=== PATIENT | female | born 1945 | race Caucasian/White ===

== ENCOUNTER 2017-05-05 16:06 | Inpatient (IN) | payer MEDICAID ==
[~2017-05-05] VITALS: Ht 152.4 cm; Wt 60.4 kg
[~2017-05-05 16:06] MED LIST: ALDACTONE25 MG PO; ASPIR 8181 MG PO; CIPROFLOXACIN250 M2 PO; COR3 PO; ENALAPRIL MALEAT5 MG PO; FUROSEMIDE20 MG PO; HYD1C TOP; METFORMIN HCL1000 MG PO; SIMVASTATIN20 M1 PO
--- NOTE | 2017-05-05 16:25 | NUR ---
EMT AT BEDSIDE FOR EKG
--- NOTE | 2017-05-05 16:29 | NUR ---
PT C/O OF DIZZINESS X 5 DAYS. PT STATES THAT SHE FEELS UNSTEADY ON HER FEET. PT REPORTS THAT HER APPITITE HAS DECREASED ALSO 5 DAYS AGO. PT REPORTS HAVING DIARRHEA SINCE X 2 DAYS. PT STATES THAT THE DIZZINESS GOES AWAY WHEN SHE LAYS DOWN. PATIENT DENIES ANY N/V. RESPIRATIONS EVEN AND UNLABORED. NAD NOTED.
--- NOTE | 2017-05-05 16:52 | NUR ---
DR CRISTINA AT BEDSIDE FOR MSE
--- NOTE | 2017-05-05 16:59 | NUR ---
EMT AT BEDSIDE FOR ORTHOSTATICS
--- NOTE | 2017-05-05 17:01 | NUR ---
LAB AT [facility] FOR BLOOD DRAW
[2017-05-05 17:12] LABS: BASOPHIL % 0.4 % (0-2); PLATELET COUNT 207 x10^3mcL (130-400); RED CELL DISTRIBUTION WIDTH 12.9 % (11.5-14.5)
--- NOTE | 2017-05-05 17:19 | NUR ---
RT AT BEDSIDE FOR ABG
--- NOTE | 2017-05-05 17:26 | NUR ---
PT GOING BY [facility] FOR CXR.
[2017-05-05 17:37] LABS: ALBUMIN 4.1 g/dL (3.4-5.0); ALKALINE PHOSPHATASE 157 U/L (46-116); ALT/SGPT 17 U/L (14-59); AMYLASE 36 U/L (25-115); AST/SGOT 14 U/L (15-37); BILIRUBIN TOTAL 0.5 mg/dL (0.20-1.00); CALCIUM 9.4 mg/dL (8.5-10.1); CARBON DIOXIDE 31.3 mmol/L (21-32); CHLORIDE SERUM 89 mmol/L (98-107); CHOLESTEROL 189 mg/dL (<200); CREATININE SERUM 2.2 mg/dL (0.6-1.0); HDL CHOLESTEROL 53 mg/dL (40-60); LIPASE 320 IU/L (73-393); MAGNESIUM 2.5 mg/dL (1.8-2.4); SODIUM SERUM 127 mmol/L (136-145); T4(THYROXINE) 8.4 ug/dL (4.7-13.3)
[2017-05-05 17:40] LABS: TOTAL PROTEIN, SERUM 8.4 g/dL (6.4-8.2)
[2017-05-05 17:43] LABS: POTASSIUM SERUM 5.7 mmol/L (3.5-5.1)
[2017-05-05 18:05] LABS: GLUCOSE SERUM 888 mg/dL (74-106)
--- NOTE | 2017-05-05 18:14 | NUR ---
PT RESTING COMFORTABLY. NAD NOTED. RESPIRAATIONS EVEN AND UNLABORED. FAMILY AT BEDSIDE.
[2017-05-05 18:53] LABS: UA SPECIFIC GRAVITY <=1.005 (1.005-1.035); microscopic required? YES
[2017-05-05 18:54] LABS: urine erythrocyte NEGATIVE (NEGATIVE)
--- NOTE | 2017-05-05 19:27 | NUR ---
REPORT RECEIVED FOR THIS PT FROM THAI GUY.
--- NOTE | 2017-05-05 19:44 | NUR ---
PT MEDICATED PER MD ORDERS.
--- NOTE | 2017-05-05 22:25 | NUR ---
PT TO AND FROM RR
--- NOTE | 2017-05-05 22:44 | NUR ---
PT UP TO RR WITH FAMILY ASSISTANCE, RETURNED TO BED SAFELY.
[2017-05-05 22:48] LABS: CALCIUM 8.2 mg/dL (8.5-10.1); CARBON DIOXIDE 28.3 mmol/L (21-32); CHLORIDE SERUM 111 mmol/L (98-107); CREATININE SERUM 1.4 mg/dL (0.6-1.0); GLUCOSE SERUM 122 mg/dL (74-106); POTASSIUM SERUM 4.5 mmol/L (3.5-5.1); SODIUM SERUM 146 mmol/L (136-145)
--- NOTE | 2017-05-05 23:39 | NUR ---
PT USED BEDSIDE CAMODE WITH NO INCIDENT. PASSED LIQUID STOOL, RETURNED TO BED SAFELY. FAMILY REMAINS AT BEDSIDE
[2017-05-06] MEDS ORDERED: CARVEDILOL6.25 M1 PO (01:05)
[2017-05-06] MEDS ORDERED: FUROSEMIDE40 MG PO (01:05)
[2017-05-06] MEDS ORDERED: ENALAPRIL MALEA10 MG PO (01:07)
--- NOTE | 2017-05-06 01:13 | NUR ---
REPORT CALLED TO THAI ADAMS ON MST FOR THIS PT
--- NOTE | 2017-05-06 01:34 | NUR ---
PATIENT RECEIVED FROM ER VIA [facility] DUE TO COMPLAIN OF GENERALIZED WEAKNESS, FATIGUE, ANOREXIA AND DIZZINESS X5 DAYS. AWAKE, ALERT, ORIENTED X4. SAMI SPEAKING. RESPIRATION EVEN AND UNLABORED, ON ROOM AIR. SALINE LOCK TO RIGHT ANTECUBITAL AREA AND RIGHT FOREARM. VOIDING FREELY WITHOUT DIFFICULTY. MILD GENERALIZED WEAKNESS NOTED. SKIN DRY AND INTACT. DAUGHTER AT THE BEDSIDE. ON TELE #11. WILL CONTINUE TO MONITOR PATIENT.
[2017-05-06 02:07] VITALS: BP 128/38; BP 139/76
[2017-05-06 03:04] VITALS: BP 128/38
[2017-05-06 05:39] VITALS: BP 144/64
[2017-05-06 06:10] LABS: BASOPHIL % 0.4 % (0-2); PLATELET COUNT 158 x10^3mcL (130-400); RED CELL DISTRIBUTION WIDTH 12.9 % (11.5-14.5)
[2017-05-06 06:17] LABS: CALCIUM 8.4 mg/dL (8.5-10.1); CARBON DIOXIDE 25.8 mmol/L (21-32); CHLORIDE SERUM 110 mmol/L (98-107); CREATININE SERUM 1.4 mg/dL (0.6-1.0); GLUCOSE SERUM 256 mg/dL (74-106); MAGNESIUM 1.9 mg/dL (1.8-2.4); POTASSIUM SERUM 4.3 mmol/L (3.5-5.1); SODIUM SERUM 144 mmol/L (136-145)
--- NOTE | 2017-05-06 06:18 | NUR ---
PATIENT RESTING IN BED. RESPIRATION EVEN AND UNLABORED, ON ROOM AIR. ONGOING 0.9% NS AT 100 CC/HR INFUSING WELL AT THE LEFT FOREARM. DENIES PAIN AT THIS TIME. ASSISTED WITH NEEDS. SAFETY OBSERVED. PLACED CALL LIGHT WITHIN REACH AT ALL TIMES.
[2017-05-06 08:52] VITALS: BP 137/64
--- NOTE | 2017-05-06 10:01 | NUR ---
AAO TIMES 4. PLEASANT, COOPERATIVE. TELE # 11 SR WITH BBB. LUNGS CTA. NO SOB. O2 SAT ON RA 96%. BS'S ACTIVE TIMES 4. HURT STRONG. PERIPHERAL PULSES PALPABLE. NO EDEMA. HURT STRONG. C/O HUNGER, IM PAGING DR THOMAS FOR A DIET.
[2017-05-06 12:05] VITALS: BP 132/57
[2017-05-06] MEDS ORDERED: MAC100 PO (14:35)
[2017-05-06] MEDS ORDERED: V10 PO (14:36)
[2017-05-06] MEDS ORDERED: LIPI20 PO (14:36)
[2017-05-06] MEDS ORDERED: COR6 PO (14:36)
[2017-05-06] MEDS ORDERED: BG FS (14:37)
[2017-05-06] MEDS ORDERED: METFORMIN HCL1000 MG PO (14:39)
[2017-05-06] MEDS ORDERED: ACCU-CHEK AVIV1 EAC1 MC (14:43)
[2017-05-06 14:51] VITALS: BP 132/57
[2017-05-06] MEDS ORDERED: FLA500 PO (15:59)
--- NOTE | 2017-05-06 16:30 | NUR ---
ERON IS DOING TEACHING RE HOW TO USE THE GLUCOMETER WITH THE FAMILY.
[2017-05-06] MEDS ORDERED: ACCU-CHEK1 EACH MC (16:32)
--- NOTE | 2017-05-06 17:46 | NUR ---
DC'D SL ANGIO INTACT. GAVE PT DISCHARGE INSTRUCTIONS AND PRESCRIPTION SENT TO PHARMACY SUCCESSFULLY. PT'S DTR PRESENT, SUPPORTIVE. THEY WILL GO AFTER SHE EATS HER DINNER .
== END 2017-05-06 18:01 | disposition home or self-care (01) | DRG 420 ==
LOC: ED 16:06 → DU 18:44
PROVIDERS: Emergency Medicine; ADMIT Family Medicine
DX: E11.00 Type 2 diabetes mellitus with hyperosmolarity without nonketotic hyperglycemic-hyperosmolar coma (NKHHC) (principal); N17.0 Acute kidney failure with tubular necrosis; E87.5 Hyperkalemia; E83.41 Hypermagnesemia; N39.0 Urinary tract infection, site not specified; E87.1 Hypo-osmolality and hyponatremia; I10 Essential (primary) hypertension; D64.9 Anemia, unspecified; I25.2 Old myocardial infarction; Z79.82 Long term (current) use of aspirin; Z68.26 Body mass index [BMI] 26.0-26.9, adult
CPT/HCPCS: 36600; 82962; 83880; J0696; J1815; J7030; Q0092

== ENCOUNTER 2017-05-14 21:56 | Inpatient (IN) | payer MEDICAID ==
[~2017-05-14] VITALS: Ht 152.4 cm; Wt 70.4 kg
[~2017-05-14 21:56] MED LIST changes: +ACCU-CHEK AVIV1 EAC1 MC; +ACCU-CHEK1 EACH MC; +BG FS; +CARVEDILOL6.25 M1 PO; +COR6 PO; +ENALAPRIL MALEA10 MG PO; +FLA500 PO; +FUROSEMIDE40 MG PO; +LIPI20 PO; +MAC100 PO; +V10 PO
[2017-05-14 23:00] LABS: BASOPHIL % 0.1 % (0-2); PLATELET COUNT 297 x10^3mcL (130-400); RED CELL DISTRIBUTION WIDTH 13.4 % (11.5-14.5)
[2017-05-14 23:14] LABS: ALBUMIN 3.6 g/dL (3.4-5.0); ALKALINE PHOSPHATASE 104 U/L (46-116); ALT/SGPT 25 U/L (14-59); AST/SGOT 48 U/L (15-37); BILIRUBIN TOTAL 0.5 mg/dL (0.20-1.00); CALCIUM 8.7 mg/dL (8.5-10.1); CARBON DIOXIDE 12.7 mmol/L (21-32); CHLORIDE SERUM 95 mmol/L (98-107); GLUCOSE SERUM 89 mg/dL (74-106); POTASSIUM SERUM 4.8 mmol/L (3.5-5.1); SODIUM SERUM 141 mmol/L (136-145); TOTAL PROTEIN, SERUM 7.8 g/dL (6.4-8.2)
[2017-05-14 23:19] LABS: CREATININE SERUM 9.6 mg/dL (0.6-1.0)
[2017-05-14 23:38] LABS: CK-MB 3.2 ng/mL (0-3.6)
[2017-05-15] VITALS (22 sets, daily range): BP systolic 52–177; BP diastolic 26–64
[2017-05-15 03:39] LABS: MAGNESIUM 2.3 mg/dL (1.8-2.4)
[2017-05-15 03:45] LABS: CHOLESTEROL/HDL RATIO 2.5
[2017-05-15 03:52] LABS: PHOSPHOROUS 9.6 mg/dL (2.5-4.9)
[2017-05-15 06:00] LABS: CALCIUM 7.7 mg/dL (8.5-10.1); CARBON DIOXIDE 10.7 mmol/L (21-32); CHLORIDE SERUM 100 mmol/L (98-107); GLUCOSE SERUM 77 mg/dL (74-106); MAGNESIUM 2.3 mg/dL (1.8-2.4); POTASSIUM SERUM 5.1 mmol/L (3.5-5.1); SODIUM SERUM 148 mmol/L (136-145)
[2017-05-15 06:12] LABS: PHOSPHOROUS 10.4 mg/dL (2.5-4.9)
[2017-05-15 10:00] LABS: CALCIUM 7.4 mg/dL (8.5-10.1); CHLORIDE SERUM 99 mmol/L (98-107); GLUCOSE SERUM 137 mg/dL (74-106); MAGNESIUM 3.7 mg/dL (1.8-2.4); POTASSIUM SERUM 4.4 mmol/L (3.5-5.1); SODIUM SERUM 149 mmol/L (136-145)
[2017-05-15 10:10] LABS: microscopic required? YES; urine erythrocyte 3+ (NEGATIVE)
[2017-05-15 10:27] LABS: CARBON DIOXIDE 8.7 mmol/L (21-32)
[2017-05-15 10:28] LABS: CREATININE SERUM 8.7 mg/dL (0.6-1.0)
[2017-05-15 10:29] LABS: PHOSPHOROUS 12.5 mg/dL (2.5-4.9)
[2017-05-15 12:32] LABS: CALCIUM 8.5 mg/dL (8.5-10.1); CARBON DIOXIDE 11.2 mmol/L (21-32); CHLORIDE SERUM 98 mmol/L (98-107); GLUCOSE SERUM 260 mg/dL (74-106); MAGNESIUM 3.2 mg/dL (1.8-2.4); POTASSIUM SERUM 4.2 mmol/L (3.5-5.1); SODIUM SERUM 153 mmol/L (136-145)
[2017-05-15 13:15] LABS: CREATININE SERUM 8.4 mg/dL (0.6-1.0); PHOSPHOROUS 12.1 mg/dL (2.5-4.9)
[2017-05-15 18:23] LABS: CALCIUM 7.7 mg/dL (8.5-10.1); CARBON DIOXIDE 14.2 mmol/L (21-32); CHLORIDE SERUM 99 mmol/L (98-107); CREATININE SERUM 3.4 mg/dL (0.6-1.0); GLUCOSE SERUM 259 mg/dL (74-106); SODIUM SERUM 142 mmol/L (136-145)
[2017-05-15 18:27] LABS: POTASSIUM SERUM 2.7 mmol/L (3.5-5.1)
[2017-05-15 18:28] LABS: MAGNESIUM 1.7 mg/dL (1.8-2.4); PHOSPHOROUS 3.7 mg/dL (2.5-4.9)
[2017-05-16] VITALS (18 sets, daily range): BP systolic 115–183; BP diastolic 35–59
[2017-05-16 03:07] LABS: CALCIUM 7.1 mg/dL (8.5-10.1); CHLORIDE SERUM 96 mmol/L (98-107); GLUCOSE SERUM 337 mg/dL (74-106); MAGNESIUM 2.2 mg/dL (1.8-2.4); PHOSPHOROUS 2.7 mg/dL (2.5-4.9); SODIUM SERUM 136 mmol/L (136-145)
[2017-05-16 03:10] LABS: CREATININE SERUM 4.1 mg/dL (0.6-1.0)
[2017-05-16 08:48] LABS: PLATELET COUNT 186 x10^3mcL (130-400); RED CELL DISTRIBUTION WIDTH 13.4 % (11.5-14.5)
[2017-05-16 09:35] LABS: BAND NEUTROPHIL 17 % (0-10); BASOPHIL 0 % (0-2); MONOCYTE 6 % (0-7); SEGMENTED NEUTROPHILS 66 % (37-75); rbc morphology (normal/abnorm) NORMAL (NORMAL)
[2017-05-16 09:36] LABS: PLATELET MORPHOLOGY PLATELETS NORMAL
[2017-05-16 10:28] LABS: CALCIUM 7.6 mg/dL (8.5-10.1); CHLORIDE SERUM 98 mmol/L (98-107); GLUCOSE SERUM 115 mg/dL (74-106); PHOSPHOROUS 2.3 mg/dL (2.5-4.9); POTASSIUM SERUM 3.5 mmol/L (3.5-5.1); SODIUM SERUM 141 mmol/L (136-145)
[2017-05-16 10:36] LABS: CREATININE SERUM 4.4 mg/dL (0.6-1.0)
[2017-05-16 19:13] LABS: CALCIUM 6.8 mg/dL (8.5-10.1); CARBON DIOXIDE 26.8 mmol/L (21-32); CHLORIDE SERUM 98 mmol/L (98-107); GLUCOSE SERUM 210 mg/dL (74-106); MAGNESIUM 1.8 mg/dL (1.8-2.4); PHOSPHOROUS 1.9 mg/dL (2.5-4.9); POTASSIUM SERUM 3.4 mmol/L (3.5-5.1); SODIUM SERUM 134 mmol/L (136-145)
[2017-05-16 19:16] LABS: CREATININE SERUM 4.3 mg/dL (0.6-1.0)
[2017-05-17] VITALS (17 sets, daily range): BP systolic 95–156; BP diastolic 29–66
[2017-05-17 02:26] LABS: CALCIUM 6.9 mg/dL (8.5-10.1); CARBON DIOXIDE 26.8 mmol/L (21-32); CHLORIDE SERUM 101 mmol/L (98-107); GLUCOSE SERUM 200 mg/dL (74-106); MAGNESIUM 1.8 mg/dL (1.8-2.4); PHOSPHOROUS 1.6 mg/dL (2.5-4.9); POTASSIUM SERUM 3.7 mmol/L (3.5-5.1); SODIUM SERUM 139 mmol/L (136-145)
[2017-05-17 02:30] LABS: CREATININE SERUM 4.4 mg/dL (0.6-1.0)
[2017-05-17 05:47] LABS: PLATELET COUNT 144 x10^3mcL (130-400); RED CELL DISTRIBUTION WIDTH 13.6 % (11.5-14.5)
[2017-05-17 05:48] LABS: CALCIUM 6.9 mg/dL (8.5-10.1); CARBON DIOXIDE 26.2 mmol/L (21-32); CHLORIDE SERUM 102 mmol/L (98-107); GLUCOSE SERUM 234 mg/dL (74-106); MAGNESIUM 1.8 mg/dL (1.8-2.4); PHOSPHOROUS 1.6 mg/dL (2.5-4.9); POTASSIUM SERUM 3.8 mmol/L (3.5-5.1); SODIUM SERUM 139 mmol/L (136-145)
[2017-05-17 05:49] LABS: ALBUMIN 1.9 g/dL (3.4-5.0)
[2017-05-17 05:56] LABS: CREATININE SERUM 4.4 mg/dL (0.6-1.0)
[2017-05-17 06:15] LABS: BAND NEUTROPHIL 11 % (0-10); METAMYELOCTE 1 % (0-2); MONOCYTE 8 % (0-7); PLATELET MORPHOLOGY LARGE PLATELET SEEN; SEGMENTED NEUTROPHILS 70 % (37-75); rbc morphology (normal/abnorm) NORMAL (NORMAL)
[2017-05-17 10:25] LABS: CALCIUM 6.5 mg/dL (8.5-10.1); CARBON DIOXIDE 25.2 mmol/L (21-32); CHLORIDE SERUM 106 mmol/L (98-107); GLUCOSE SERUM 174 mg/dL (74-106); MAGNESIUM 1.7 mg/dL (1.8-2.4); PHOSPHOROUS 1.9 mg/dL (2.5-4.9); POTASSIUM SERUM 3.4 mmol/L (3.5-5.1); SODIUM SERUM 140 mmol/L (136-145)
[2017-05-17 10:37] LABS: CREATININE SERUM 4.3 mg/dL (0.6-1.0)
[2017-05-17 18:32] LABS: CALCIUM 6.8 mg/dL (8.5-10.1); CARBON DIOXIDE 28.7 mmol/L (21-32); CHLORIDE SERUM 106 mmol/L (98-107); GLUCOSE SERUM 212 mg/dL (74-106); MAGNESIUM 1.7 mg/dL (1.8-2.4); PHOSPHOROUS 2.2 mg/dL (2.5-4.9); POTASSIUM SERUM 3.5 mmol/L (3.5-5.1); SODIUM SERUM 141 mmol/L (136-145)
[2017-05-17 18:38] LABS: CREATININE SERUM 4.4 mg/dL (0.6-1.0)
[2017-05-18] VITALS (17 sets, daily range): BP systolic 70–113; BP diastolic 39–68
[2017-05-18 05:33] LABS: CARBON DIOXIDE 27.9 mmol/L (21-32); CHLORIDE SERUM 108 mmol/L (98-107); GLUCOSE SERUM 125 mg/dL (74-106); MAGNESIUM 1.7 mg/dL (1.8-2.4); PHOSPHOROUS 1.9 mg/dL (2.5-4.9); POTASSIUM SERUM 3.2 mmol/L (3.5-5.1); SODIUM SERUM 142 mmol/L (136-145)
[2017-05-18 05:34] LABS: RED CELL DISTRIBUTION WIDTH 13.7 % (11.5-14.5)
[2017-05-18 05:36] LABS: PLATELET COUNT 111 x10^3mcL (130-400)
[2017-05-18 05:45] LABS: CREATININE SERUM 4.2 mg/dL (0.6-1.0)
[2017-05-18 05:50] LABS: BAND NEUTROPHIL 12 % (0-10); BASOPHIL 0 % (0-2); METAMYELOCTE 1 % (0-2); MONOCYTE 1 % (0-7); SEGMENTED NEUTROPHILS 77 % (37-75)
[2017-05-18 05:52] LABS: rbc morphology (normal/abnorm) NORMAL (NORMAL)
[2017-05-18 05:53] LABS: PLATELET MORPHOLOGY LARGE PLATELET SEEN
[2017-05-18 10:24] LABS: CALCIUM 7.1 mg/dL (8.5-10.1); CARBON DIOXIDE 29.2 mmol/L (21-32); CHLORIDE SERUM 105 mmol/L (98-107); GLUCOSE SERUM 175 mg/dL (74-106); POTASSIUM SERUM 3.8 mmol/L (3.5-5.1); SODIUM SERUM 131 mmol/L (136-145)
[2017-05-18 10:31] LABS: CREATININE SERUM 4.2 mg/dL (0.6-1.0)
[2017-05-18 18:55] LABS: CALCIUM 7.1 mg/dL (8.5-10.1); CARBON DIOXIDE 29.1 mmol/L (21-32); CHLORIDE SERUM 109 mmol/L (98-107); POTASSIUM SERUM 3.6 mmol/L (3.5-5.1); SODIUM SERUM 143 mmol/L (136-145)
[2017-05-18 18:57] LABS: GLUCOSE SERUM 59 mg/dL (74-106)
[2017-05-19] VITALS (10 sets, daily range): BP systolic 96–1127; BP diastolic 39–90
[2017-05-19 04:56] LABS: BASOPHIL % 0.2 % (0-2); RED CELL DISTRIBUTION WIDTH 13.9 % (11.5-14.5)
[2017-05-19 05:00] LABS: PLATELET COUNT 104 x10^3mcL (130-400)
[2017-05-19 05:04] LABS: CARBON DIOXIDE 27.4 mmol/L (21-32); CHLORIDE SERUM 108 mmol/L (98-107); CREATININE SERUM 3.6 mg/dL (0.6-1.0); GLUCOSE SERUM 119 mg/dL (74-106); MAGNESIUM 1.7 mg/dL (1.8-2.4); PHOSPHOROUS 2.6 mg/dL (2.5-4.9); POTASSIUM SERUM 3.3 mmol/L (3.5-5.1); SODIUM SERUM 142 mmol/L (136-145)
[2017-05-19 05:11] LABS: ALBUMIN 1.6 g/dL (3.4-5.0)
[2017-05-20] VITALS: BP 96/59
[2017-05-20 03:35] VITALS: BP 107/53
[2017-05-20 05:39] LABS: BASOPHIL % 0.4 % (0-2); PLATELET COUNT 135 x10^3mcL (130-400); RED CELL DISTRIBUTION WIDTH 13.8 % (11.5-14.5)
[2017-05-20 05:40] LABS: CALCIUM 7.3 mg/dL (8.5-10.1); CARBON DIOXIDE 26.9 mmol/L (21-32); CHLORIDE SERUM 110 mmol/L (98-107); CREATININE SERUM 2.9 mg/dL (0.6-1.0); GLUCOSE SERUM 129 mg/dL (74-106); MAGNESIUM 1.7 mg/dL (1.8-2.4); POTASSIUM SERUM 4.2 mmol/L (3.5-5.1); SODIUM SERUM 146 mmol/L (136-145)
[2017-05-20 08:25] VITALS: BP 107/53
[2017-05-20 12:00] VITALS: BP 121/62
[2017-05-20 15:10] VITALS: BP 112/58
[2017-05-20 21:44] VITALS: BP 115/55
[2017-05-21 05:42] VITALS: BP 121/64
[2017-05-21 08:51] VITALS: BP 124/62
[2017-05-21 10:31] LABS: BASOPHIL % 0.2 % (0-2); PLATELET COUNT 190 x10^3mcL (130-400); RED CELL DISTRIBUTION WIDTH 13.9 % (11.5-14.5)
[2017-05-21 10:47] LABS: CALCIUM 7.6 mg/dL (8.5-10.1); CARBON DIOXIDE 24.7 mmol/L (21-32); CHLORIDE SERUM 110 mmol/L (98-107); CREATININE SERUM 2.4 mg/dL (0.6-1.0); GLUCOSE SERUM 176 mg/dL (74-106); MAGNESIUM 1.9 mg/dL (1.8-2.4); PHOSPHOROUS 3.6 mg/dL (2.5-4.9); POTASSIUM SERUM 4.4 mmol/L (3.5-5.1); SODIUM SERUM 145 mmol/L (136-145)
[2017-05-21 11:38] VITALS: BP 121/65
[2017-05-21 17:00] VITALS: BP 103/49
[2017-05-21 22:24] VITALS: BP 119/51
[2017-05-22] VITALS (7 sets, daily range): BP systolic 92–125; BP diastolic 48–60
[2017-05-22 06:31] LABS: CALCIUM 7.7 mg/dL (8.5-10.1); CARBON DIOXIDE 23.9 mmol/L (21-32); CHLORIDE SERUM 110 mmol/L (98-107); CREATININE SERUM 2.1 mg/dL (0.6-1.0); GLUCOSE SERUM 110 mg/dL (74-106); MAGNESIUM 1.8 mg/dL (1.8-2.4); PHOSPHOROUS 3.2 mg/dL (2.5-4.9); POTASSIUM SERUM 3.7 mmol/L (3.5-5.1); SODIUM SERUM 143 mmol/L (136-145)
[2017-05-22 06:41] LABS: PLATELET COUNT 234 x10^3mcL (130-400); RED CELL DISTRIBUTION WIDTH 13.7 % (11.5-14.5)
[2017-05-22 08:56] LABS: BAND NEUTROPHIL 2 % (0-10); BASOPHIL 0 % (0-2); METAMYELOCTE 1 % (0-2); MONOCYTE 20 % (0-7); MYELOCYTE 1 % (0-2); SEGMENTED NEUTROPHILS 46 % (37-75)
[2017-05-22 08:57] LABS: rbc morphology (normal/abnorm) ABNORMAL (NORMAL)
[2017-05-23 05:04] VITALS: BP 122/72
[2017-05-23 06:11] LABS: BASOPHIL % 0.4 % (0-2); PLATELET COUNT 279 x10^3mcL (130-400); RED CELL DISTRIBUTION WIDTH 13.7 % (11.5-14.5)
[2017-05-23 06:31] LABS: CALCIUM 7.5 mg/dL (8.5-10.1); CARBON DIOXIDE 25.6 mmol/L (21-32); CHLORIDE SERUM 111 mmol/L (98-107); CREATININE SERUM 1.8 mg/dL (0.6-1.0); GLUCOSE SERUM 129 mg/dL (74-106); MAGNESIUM 1.7 mg/dL (1.8-2.4); PHOSPHOROUS 3.5 mg/dL (2.5-4.9); POTASSIUM SERUM 3.8 mmol/L (3.5-5.1); SODIUM SERUM 147 mmol/L (136-145)
[2017-05-23 08:36] VITALS: BP 123/54
[2017-05-23 12:48] VITALS: BP 134/69
[2017-05-23 16:54] VITALS: BP 140/66
[2017-05-23 20:39] VITALS: BP 131/65
[2017-05-24 05:26] VITALS: BP 110/63
[2017-05-24 06:47] LABS: CARBON DIOXIDE 27.8 mmol/L (21-32); CHLORIDE SERUM 112 mmol/L (98-107); CREATININE SERUM 1.5 mg/dL (0.6-1.0); GLUCOSE SERUM 114 mg/dL (74-106); POTASSIUM SERUM 3.8 mmol/L (3.5-5.1); SODIUM SERUM 144 mmol/L (136-145)
[2017-05-24 06:48] LABS: CALCIUM 7.5 mg/dL (8.5-10.1)
[2017-05-24 06:56] LABS: BASOPHIL % 0.6 % (0-2); PLATELET COUNT 317 x10^3mcL (130-400); RED CELL DISTRIBUTION WIDTH 14.2 % (11.5-14.5)
[2017-05-24 07:04] LABS: MAGNESIUM 1.7 mg/dL (1.8-2.4); PHOSPHOROUS 3.6 mg/dL (2.5-4.9)
[2017-05-24 08:36] VITALS: BP 128/56
[2017-05-24 12:22] VITALS: BP 127/73
[2017-05-24 16:42] VITALS: BP 101/49
[2017-05-24 21:09] VITALS: BP 116/50
[2017-05-25 05:59] VITALS: BP 125/58
[2017-05-25 07:03] LABS: CALCIUM 7.5 mg/dL (8.5-10.1); CARBON DIOXIDE 26.5 mmol/L (21-32); CHLORIDE SERUM 112 mmol/L (98-107); CREATININE SERUM 1.4 mg/dL (0.6-1.0); GLUCOSE SERUM 116 mg/dL (74-106); MAGNESIUM 1.6 mg/dL (1.8-2.4); PHOSPHOROUS 3.2 mg/dL (2.5-4.9); POTASSIUM SERUM 3.9 mmol/L (3.5-5.1); SODIUM SERUM 146 mmol/L (136-145)
[2017-05-25 07:36] LABS: BASOPHIL % 0.5 % (0-2); PLATELET COUNT 330 x10^3mcL (130-400); RED CELL DISTRIBUTION WIDTH 14.2 % (11.5-14.5)
[2017-05-25 08:30] VITALS: BP 135/62
[2017-05-25 14:00] VITALS: BP 138/70
[2017-05-25 20:39] VITALS: BP 139/75
[2017-05-26 05:13] VITALS: BP 123/64
[2017-05-26 05:58] LABS: CALCIUM 7.8 mg/dL (8.5-10.1); CARBON DIOXIDE 27.8 mmol/L (21-32); CHLORIDE SERUM 113 mmol/L (98-107); CREATININE SERUM 1.5 mg/dL (0.6-1.0); GLUCOSE SERUM 81 mg/dL (74-106); MAGNESIUM 2.2 mg/dL (1.8-2.4); PHOSPHOROUS 3.6 mg/dL (2.5-4.9); POTASSIUM SERUM 4.9 mmol/L (3.5-5.1); SODIUM SERUM 146 mmol/L (136-145)
[2017-05-26 06:21] LABS: BASOPHIL % 0.5 % (0-2); PLATELET COUNT 385 x10^3mcL (130-400)
[2017-05-26 06:49] LABS: RED CELL DISTRIBUTION WIDTH 14.6 % (11.5-14.5)
[2017-05-26 08:41] VITALS: BP 137/53
[2017-05-26 10:17] VITALS: BP 137/53
[2017-05-26 12:40] VITALS: BP 131/61
[2017-05-26 16:51] VITALS: BP 113/58
[2017-05-26 21:27] VITALS: BP 118/58
[2017-05-27 04:44] VITALS: BP 114/50
[2017-05-27 06:20] LABS: CALCIUM 7.6 mg/dL (8.5-10.1); CARBON DIOXIDE 27.1 mmol/L (21-32); CHLORIDE SERUM 113 mmol/L (98-107); CREATININE SERUM 1.7 mg/dL (0.6-1.0); GLUCOSE SERUM 103 mg/dL (74-106); MAGNESIUM 1.8 mg/dL (1.8-2.4); POTASSIUM SERUM 5.2 mmol/L (3.5-5.1); SODIUM SERUM 147 mmol/L (136-145)
[2017-05-27 07:08] LABS: RED CELL DISTRIBUTION WIDTH 13.4 % (11.5-14.5)
[2017-05-27 07:15] LABS: BASOPHIL % 2.1 % (0-2); PLATELET COUNT 467 x10^3mcL (130-400)
[2017-05-27 08:50] VITALS: BP 122/56
[2017-05-27 13:22] VITALS: BP 111/46
[2017-05-27 16:38] VITALS: BP 113/63
[2017-05-27 20:46] VITALS: BP 125/64
[2017-05-28 05:32] VITALS: BP 116/54
[2017-05-28 06:21] LABS: BASOPHIL % 1.3 % (0-2); RED CELL DISTRIBUTION WIDTH 14.6 % (11.5-14.5)
[2017-05-28 06:22] LABS: PLATELET COUNT 433 x10^3mcL (130-400)
[2017-05-28 06:29] LABS: CALCIUM 7.6 mg/dL (8.5-10.1); CARBON DIOXIDE 29.1 mmol/L (21-32); CHLORIDE SERUM 113 mmol/L (98-107); CREATININE SERUM 1.8 mg/dL (0.6-1.0); GLUCOSE SERUM 117 mg/dL (74-106); MAGNESIUM 1.8 mg/dL (1.8-2.4); PHOSPHOROUS 4.8 mg/dL (2.5-4.9); POTASSIUM SERUM 4.7 mmol/L (3.5-5.1); SODIUM SERUM 148 mmol/L (136-145)
[2017-05-28 08:45] VITALS: BP 126/64
[2017-05-28 13:36] VITALS: BP 126/45
[2017-05-28 16:25] VITALS: BP 122/50
[2017-05-28 20:58] VITALS: BP 127/78
[2017-05-28 20:59] VITALS: BP 128/84
[2017-05-29 05:49] VITALS: BP 125/62
[2017-05-29 06:36] LABS: CALCIUM 7.8 mg/dL (8.5-10.1); CARBON DIOXIDE 26.2 mmol/L (21-32); CHLORIDE SERUM 110 mmol/L (98-107); CREATININE SERUM 1.8 mg/dL (0.6-1.0); GLUCOSE SERUM 110 mg/dL (74-106); MAGNESIUM 1.7 mg/dL (1.8-2.4); PHOSPHOROUS 4.1 mg/dL (2.5-4.9); SODIUM SERUM 144 mmol/L (136-145)
[2017-05-29 06:52] LABS: BASOPHIL % 1.4 % (0-2); RED CELL DISTRIBUTION WIDTH 14.5 % (11.5-14.5)
[2017-05-29 06:56] LABS: PLATELET COUNT 494 x10^3mcL (130-400)
[2017-05-29 09:30] VITALS: BP 132/48
[2017-05-29 13:28] VITALS: BP 130/67
[2017-05-29 17:26] VITALS: BP 120/74
[2017-05-29 22:57] VITALS: BP 107/48
[2017-05-30 06:08] VITALS: BP 124/57
[2017-05-30 06:36] LABS: CALCIUM 7.9 mg/dL (8.5-10.1); CARBON DIOXIDE 27.4 mmol/L (21-32); CHLORIDE SERUM 112 mmol/L (98-107); CREATININE SERUM 1.9 mg/dL (0.6-1.0); GLUCOSE SERUM 124 mg/dL (74-106); MAGNESIUM 1.7 mg/dL (1.8-2.4); POTASSIUM SERUM 4.9 mmol/L (3.5-5.1); SODIUM SERUM 146 mmol/L (136-145)
[2017-05-30 06:45] LABS: BASOPHIL % 1.2 % (0-2); RED CELL DISTRIBUTION WIDTH 14.5 % (11.5-14.5)
[2017-05-30 06:46] LABS: PLATELET COUNT 506 x10^3mcL (130-400)
[2017-05-30 09:41] VITALS: BP 108/45
[2017-05-30 13:14] VITALS: BP 136/70
[2017-05-30 17:19] VITALS: BP 109/67
[2017-05-30 21:04] VITALS: BP 108/37
[2017-05-31 05:45] VITALS: BP 104/51
[2017-05-31 07:10] LABS: CALCIUM 8.1 mg/dL (8.5-10.1); CARBON DIOXIDE 27.2 mmol/L (21-32); CHLORIDE SERUM 109 mmol/L (98-107); CREATININE SERUM 1.9 mg/dL (0.6-1.0); GLUCOSE SERUM 121 mg/dL (74-106); MAGNESIUM 2.2 mg/dL (1.8-2.4); PHOSPHOROUS 4.9 mg/dL (2.5-4.9); POTASSIUM SERUM 5.3 mmol/L (3.5-5.1); SODIUM SERUM 144 mmol/L (136-145)
[2017-05-31 07:13] LABS: BASOPHIL % 1.5 % (0-2); PLATELET COUNT 570 x10^3mcL (130-400); RED CELL DISTRIBUTION WIDTH 14.4 % (11.5-14.5)
[2017-05-31 10:10] VITALS: BP 125/53
[2017-05-31 11:56] VITALS: Ht 152.4 cm; Wt 70.4 kg
[2017-05-31 13:58] VITALS: BP 125/55
[2017-05-31 17:58] VITALS: BP 132/63
[2017-05-31 21:20] VITALS: BP 145/64
[2017-06-01 06:16] VITALS: BP 120/58
[2017-06-01 07:38] LABS: BASOPHIL % 1.6 % (0-2); CALCIUM 8.1 mg/dL (8.5-10.1); CARBON DIOXIDE 28.2 mmol/L (21-32); CHLORIDE SERUM 109 mmol/L (98-107); CREATININE SERUM 1.9 mg/dL (0.6-1.0); GLUCOSE SERUM 115 mg/dL (74-106); PHOSPHOROUS 4.3 mg/dL (2.5-4.9); PLATELET COUNT 579 x10^3mcL (130-400); POTASSIUM SERUM 4.7 mmol/L (3.5-5.1); RED CELL DISTRIBUTION WIDTH 14.5 % (11.5-14.5); SODIUM SERUM 145 mmol/L (136-145)
[2017-06-01 08:45] VITALS: BP 138/73
[2017-06-01 11:52] VITALS: BP 129/69
[2017-06-01 16:47] VITALS: BP 109/50
[2017-06-01 20:38] VITALS: BP 131/68
[2017-06-02 05:18] VITALS: BP 104/52
[2017-06-02 06:37] LABS: RED CELL DISTRIBUTION WIDTH 13.3 % (11.5-14.5)
[2017-06-02 06:44] LABS: BASOPHIL % 3.1 % (0-2); CALCIUM 8.2 mg/dL (8.5-10.1); CARBON DIOXIDE 26.9 mmol/L (21-32); CHLORIDE SERUM 108 mmol/L (98-107); CREATININE SERUM 1.9 mg/dL (0.6-1.0); GLUCOSE SERUM 127 mg/dL (74-106); PHOSPHOROUS 4.2 mg/dL (2.5-4.9); PLATELET COUNT 608 x10^3mcL (130-400); POTASSIUM SERUM 5.1 mmol/L (3.5-5.1); SODIUM SERUM 145 mmol/L (136-145)
[2017-06-02 10:00] VITALS: BP 122/55
[2017-06-02 14:00] VITALS: BP 128/74
[2017-06-02 17:01] VITALS: BP 132/69
[2017-06-02 20:43] VITALS: BP 121/60
[2017-06-03 05:27] VITALS: BP 126/57
[2017-06-03 06:39] LABS: BASOPHIL % 1.4 % (0-2); RED CELL DISTRIBUTION WIDTH 14.5 % (11.5-14.5)
[2017-06-03 06:41] LABS: CALCIUM 8.1 mg/dL (8.5-10.1); CARBON DIOXIDE 28.2 mmol/L (21-32); CHLORIDE SERUM 110 mmol/L (98-107); CREATININE SERUM 1.9 mg/dL (0.6-1.0); GLUCOSE SERUM 111 mg/dL (74-106); MAGNESIUM 1.7 mg/dL (1.8-2.4); PHOSPHOROUS 3.9 mg/dL (2.5-4.9); POTASSIUM SERUM 4.6 mmol/L (3.5-5.1); SODIUM SERUM 144 mmol/L (136-145)
[2017-06-03 07:38] LABS: PLATELET COUNT 544 x10^3mcL (130-400)
[2017-06-03 09:20] VITALS: BP 145/64
[2017-06-03 12:47] VITALS: BP 128/63
[2017-06-03 17:38] VITALS: BP 131/67
[2017-06-03 22:27] VITALS: BP 123/59
[2017-06-04 06:10] VITALS: BP 137/79
[2017-06-04 06:25] LABS: CALCIUM 8.1 mg/dL (8.5-10.1); CARBON DIOXIDE 28.3 mmol/L (21-32); CHLORIDE SERUM 110 mmol/L (98-107); CREATININE SERUM 1.9 mg/dL (0.6-1.0); GLUCOSE SERUM 105 mg/dL (74-106); MAGNESIUM 1.7 mg/dL (1.8-2.4); PHOSPHOROUS 3.9 mg/dL (2.5-4.9); POTASSIUM SERUM 4.5 mmol/L (3.5-5.1); SODIUM SERUM 145 mmol/L (136-145)
[2017-06-04 06:51] LABS: BASOPHIL % 0.8 % (0-2); PLATELET COUNT 543 x10^3mcL (130-400); RED CELL DISTRIBUTION WIDTH 14.3 % (11.5-14.5)
[2017-06-04 09:19] VITALS: BP 129/61
[2017-06-04 14:00] VITALS: BP 131/60
[2017-06-04 16:52] VITALS: BP 130/62
[2017-06-04 21:03] VITALS: BP 128/66
[2017-06-05 06:59] VITALS: BP 131/50
[2017-06-05 08:54] VITALS: BP 131/66
[2017-06-05 12:39] VITALS: BP 135/78
[2017-06-05 17:02] VITALS: BP 141/56
[2017-06-05 21:13] VITALS: BP 140/67
[2017-06-06 05:57] VITALS: BP 139/73
[2017-06-06 09:00] VITALS: BP 133/69
[2017-06-06 14:17] VITALS: BP 135/70
[2017-06-06 18:10] VITALS: BP 132/72
[2017-06-06 20:45] VITALS: BP 135/65
[2017-06-07 05:32] VITALS: BP 130/71
[2017-06-07 13:39] VITALS: BP 140/67
[2017-06-07 18:02] VITALS: BP 147/77
[2017-06-07 21:28] VITALS: BP 148/66
[2017-06-08 05:39] VITALS: BP 136/64
[2017-06-08 09:29] VITALS: BP 115/61
[2017-06-08 17:21] VITALS: BP 142/79
[2017-06-08 21:43] VITALS: BP 124/60
[2017-06-09 06:18] LABS: CALCIUM 8.1 mg/dL (8.5-10.1); CARBON DIOXIDE 31.2 mmol/L (21-32); CHLORIDE SERUM 110 mmol/L (98-107); CREATININE SERUM 1.8 mg/dL (0.6-1.0); GLUCOSE SERUM 113 mg/dL (74-106); SODIUM SERUM 147 mmol/L (136-145)
[2017-06-09 06:27] VITALS: BP 139/68
[2017-06-09 09:00] VITALS: BP 148/68
[2017-06-09] MEDS ORDERED: VANCOMYCIN PER PHARM MC (10:28)
[2017-06-09 11:43] VITALS: BP 147/64
[2017-06-09 15:10] VITALS: BP 147/64
[2017-06-09] MEDS ORDERED: METOPROLOL TART25 M1 PO (15:12)
[2017-06-09] MEDS ORDERED: LAC PO (15:12)
[2017-06-09] MEDS ORDERED: FERL PO (15:12)
[2017-06-09] MEDS ORDERED: GLU5 PO (15:13)
[2017-06-09 18:08] VITALS: BP 155/86
[2017-06-09 21:57] VITALS: BP 126/62
[2017-06-10 06:15] VITALS: BP 138/66
[2017-06-10 06:39] LABS: CALCIUM 8.2 mg/dL (8.5-10.1); CARBON DIOXIDE 28.5 mmol/L (21-32); CHLORIDE SERUM 109 mmol/L (98-107); CREATININE SERUM 1.8 mg/dL (0.6-1.0); GLUCOSE SERUM 128 mg/dL (74-106); MAGNESIUM 2.1 mg/dL (1.8-2.4); POTASSIUM SERUM 3.6 mmol/L (3.5-5.1); SODIUM SERUM 145 mmol/L (136-145)
[2017-06-10 07:48] LABS: BASOPHIL % 0.3 % (0-2); PLATELET COUNT 420 x10^3mcL (130-400); RED CELL DISTRIBUTION WIDTH 15.4 % (11.5-14.5)
[2017-06-10 09:46] VITALS: BP 138/71
[2017-06-10 17:51] VITALS: BP 121/56
[2017-06-10 21:18] VITALS: BP 128/63
[2017-06-11 08:49] VITALS: BP 137/57
[2017-06-11 12:36] VITALS: BP 141/78
[2017-06-11 16:56] VITALS: BP 132/69
[2017-06-11 20:39] VITALS: BP 143/74
[2017-06-12 06:02] VITALS: BP 138/72
[2017-06-12 06:16] LABS: CALCIUM 8.1 mg/dL (8.5-10.1); CARBON DIOXIDE 27.1 mmol/L (21-32); CHLORIDE SERUM 108 mmol/L (98-107); CREATININE SERUM 1.9 mg/dL (0.6-1.0); GLUCOSE SERUM 117 mg/dL (74-106); POTASSIUM SERUM 3.9 mmol/L (3.5-5.1); SODIUM SERUM 144 mmol/L (136-145)
[2017-06-12 06:22] LABS: BASOPHIL % 0.4 % (0-2); PLATELET COUNT 346 x10^3mcL (130-400)
[2017-06-12 06:29] LABS: RED CELL DISTRIBUTION WIDTH 15.7 % (11.5-14.5)
[2017-06-12 09:41] VITALS: BP 140/75
[2017-06-12 13:18] VITALS: BP 126/67
[2017-06-12] MEDS ORDERED: FLA500 PO (13:21)
[2017-06-12 15:20] VITALS: BP 147/64
== END 2017-06-12 18:02 | disposition home health service (06) | DRG 720 ==
LOC: ED 21:56 → MU 05-15 00:02 → DU 05-15 00:02 → IC 05-15 00:02 → DU 05-15 00:41 → IC 05-15 02:55 → DU 05-20 15:07 → MU 06-08 09:20
PROVIDERS: Emergency Medicine; Family Medicine; Family Medicine Sports Medicine; Internal Medicine; Student in an Organized Health Care Education/Training Program; ADMIT Family Medicine
PROC: 5A1955Z Respiratory Ventilation, Greater than 96 Consecutive Hours (ICD-10-PCS; principal; 2017-05-15)
PROC: 0BH17EZ Insertion of Endotracheal Airway into Trachea, Via Natural or Artificial Opening (ICD-10-PCS; 2017-05-15)
PROC: 05HN33Z Insertion of Infusion Device into Left Internal Jugular Vein, Percutaneous Approach (ICD-10-PCS; 2017-05-15)
PROC: 05HM33Z Insertion of Infusion Device into Right Internal Jugular Vein, Percutaneous Approach (ICD-10-PCS; 2017-05-18)
PROC: B543ZZA Ultrasonography of Right Jugular Veins, Guidance (ICD-10-PCS; 2017-05-18)
PROC: 02HV33Z Insertion of Infusion Device into Superior Vena Cava, Percutaneous Approach (ICD-10-PCS; 2017-06-09)
DX: A41.9 Sepsis, unspecified organism (principal); J96.01 Acute respiratory failure with hypoxia; N17.0 Acute kidney failure with tubular necrosis; R65.21 Severe sepsis with septic shock; I33.0 Acute and subacute infective endocarditis; E43 Unspecified severe protein-calorie malnutrition; G93.41 Metabolic encephalopathy; E87.2 Acidosis; D68.69 Other thrombophilia; I50.43 Acute on chronic combined systolic (congestive) and diastolic (congestive) heart failure; E11.65 Type 2 diabetes mellitus with hyperglycemia; I42.0 Dilated cardiomyopathy; E87.0 Hyperosmolality and hypernatremia; I47.2 Ventricular tachycardia; I34.0 Nonrheumatic mitral (valve) insufficiency; I37.1 Nonrheumatic pulmonary valve insufficiency; R74.0 Nonspecific elevation of levels of transaminase and lactic acid dehydrogenase [LDH]; E87.8 Other disorders of electrolyte and fluid balance, not elsewhere classified; Z79.84 Long term (current) use of oral hypoglycemic drugs; I48.91 Unspecified atrial fibrillation; R19.7 Diarrhea, unspecified; E87.5 Hyperkalemia; M19.90 Unspecified osteoarthritis, unspecified site; Z66 Do not resuscitate; E66.9 Obesity, unspecified; Z68.30 Body mass index [BMI] 30.0-30.9, adult; J44.9 Chronic obstructive pulmonary disease, unspecified
CPT/HCPCS: 36556; 36600; 82962; 83880; 87046; 87046-59; 94150; 97110-GP; 97116-GP; 97530-GP; A4628; C1751; J0282; J0295; J0696; J1642; J1644; J1815; J1940; J2001; J2060; J2185; J2250; J2270; J2370; J2405; J3370; J3475; J3480; J3490; J7030; J7040; J7060; J7620; J8597; Q0092

== ENCOUNTER 2017-06-29 18:54 | Emergency (ER) | payer MEDICAID ==
[~2017-06-29] VITALS: Ht 157.5 cm; Wt 65.8 kg
[~2017-06-29 18:54] MED LIST changes: +FERL PO; +GLU5 PO; +LAC PO; +METOPROLOL TART25 M1 PO; +VANCOMYCIN PER PHARM MC
[2017-06-29 23:30] LABS: CALCIUM 8.3 mg/dL (8.5-10.1); CARBON DIOXIDE 23.9 mmol/L (21-32); CHLORIDE SERUM 111 mmol/L (98-107); CREATININE SERUM 2.2 mg/dL (0.6-1.0); GLUCOSE SERUM 150 mg/dL (74-106); POTASSIUM SERUM 3.7 mmol/L (3.5-5.1); SODIUM SERUM 146 mmol/L (136-145)
[2017-06-29 23:48] VITALS: BP 127/80
== END 2017-06-29 23:48 | disposition home or self-care (01) ==
LOC: ED 18:54
PROVIDERS: Emergency Medicine
DX: J90 Pleural effusion, not elsewhere classified (principal); I10 Essential (primary) hypertension; E11.9 Type 2 diabetes mellitus without complications
CPT/HCPCS: 36415

== ENCOUNTER 2017-07-08 01:07 | Inpatient (IN) | payer OTHER ==
[~2017-07-08] VITALS: Ht 152.4 cm; Wt 78.6 kg
--- NOTE | 2017-07-08 01:50 | NUR ---
PT BIB BY MEDICS FOR SOB UPON EXHURTION. PT STATES SHE BECAME SOB WHILE GOING TO THE RESTROOM. PT LUNGS HAVE FINE CRAKLES IN BILATERAL BASES. PT SPO2 100% ON 2 LTR NC. PT DENIES ANY PAIN. PT HAS 3+ PITTING EDEMA IN BILATERAL LOWER EXTREMITIES. PEDAL PULSES PRESENT. PT DENIES ANY OTHER SYMPTOMS. VITAL SIGN STABLE. RESPIRATIONS EVEN AND UNLABORED. NO ACUTE DISTRESSNOTED.
--- NOTE | 2017-07-08 02:56 | NUR ---
PT IS TACHYPNEIC. RESPISTION LABORED. PT STATES SHE FEELS SOB. PT O2 SAT 100% ON 2 LTR. ALL OTHER VITAL SIGNS STABLE. NO ACUTE DISTRESS NOTED.
[2017-07-08 03:13] LABS: CALCIUM 8.4 mg/dL (8.5-10.1); CARBON DIOXIDE 19.7 mmol/L (21-32); CHLORIDE SERUM 110 mmol/L (98-107); CREATININE SERUM 2.5 mg/dL (0.6-1.0); GLUCOSE SERUM 137 mg/dL (74-106); POTASSIUM SERUM 3.3 mmol/L (3.5-5.1); SODIUM SERUM 146 mmol/L (136-145)
[2017-07-08 03:19] LABS: ALBUMIN 3.4 g/dL (3.4-5.0); ALKALINE PHOSPHATASE 155 U/L (46-116); ALT/SGPT 34 U/L (14-59); AST/SGOT 74 U/L (15-37); BILIRUBIN TOTAL 1.84 mg/dL (0.20-1.00); TOTAL PROTEIN, SERUM 7.5 g/dL (6.4-8.2)
[2017-07-08 03:28] LABS: PLATELET COUNT 201 x10^3mcL (130-400)
[2017-07-08 03:32] LABS: RED CELL DISTRIBUTION WIDTH 18.5 % (11.5-14.5)
--- NOTE | 2017-07-08 03:56 | NUR ---
PT IS TACHYPNEIC. O2 SAT 93% ON 2 LTR NC. RESPIRATIONS ARE LABORED BUT EVEN. ALL OTHER VITAL SIGNS STABLE. RESIDENT AT BEDSIDE. NO ACUTE DISTRESS NOTED.
--- NOTE | 2017-07-08 04:29 | NUR ---
REPORT GIVEN TO JESSICA ON MED/TELE.
--- NOTE | 2017-07-08 04:44 | NUR ---
PT ARRIVED ON THE FLOOR FROM ER VIA [facility] ACCOMPANIED BY HER DAUGHTER AND NURSES. PT IS ADMITTED W/ C/O SOB ON EXERTION. PT IS AWAKE, ALERT,ORIENTED X4 W/ CLEAR SPEECH. LUNG SOUNDS W/ FINE AND COARSE CRACKLES AT THE BASES. PT W/ MILD SOB AT REST AND MORE SOB ON EXERTION. SHE DENIED PAIN. W/ +3 PITTING EDEMA TO BLE. PER DAUGHTER PT NOT URINATING MUCH. SHE DEIES PAIN OR BURNING ON URINATION. W/ PICC LINE TO LY UPPER ARM. PT ORIENTED TO ROOM AND INSTRUCTED ON THE USE OF CALL LIGHT.
[2017-07-08 05:16] VITALS: BP 139/83
[2017-07-08 05:24] LABS: CHOLESTEROL/HDL RATIO 3.8; MAGNESIUM 2.2 mg/dL (1.8-2.4); PHOSPHOROUS 4.8 mg/dL (2.5-4.9)
[2017-07-08 06:18] VITALS: BP 139/83
[2017-07-08 06:19] LABS: T3 TOTAL 0.44 ng/mL
--- NOTE | 2017-07-08 07:10 | NUR ---
INFORMED RESIDENT REGARDING LACTIC 2.6. ALSO GIVEN COPY OF HEART RHYTHM SHOWING SR W/ ABERRANT CONDUCTIONS AND W/ BORDERLINE BBB.
--- NOTE | 2017-07-08 07:22 | NUR ---
PT RECEIVED DURING CHANGE OF SHIFT, A/OX4, TELE 28, DENIES CHEST PAIN, PULSES PRESENT, +3 EDEMA BLE, CRACKLES HEARD IN BASES BILATERALLY, PT C/O SOB, ASSISTED PT TO SITTING IN CHAIR, PT STATED SHE COULD BREATHE BETTER, 2L NC, BOWEL SOUNDS ACTIVE, INCONTINENT OF URINE, GENERALIZED WEAKNESS, SKIN WARM/DRY/INTACT, DENIES PAIN AT THIS TIME, PICC TO LEFT UPPER ARM INFUSING NS AT 20ML/HR, CALL LIGHT WITHIN REACH, CALM AND COOPERATIVE, WILL CONTINUE TO MONITOR.
--- NOTE | 2017-07-08 08:48 | NUR ---
PT DENIES SOB, DENIES PAIN, REQUESTED HELP FROM TON CONTAINER SHIPPER FOR ASSISTANCE WITH BSC, STATED "I'M EMBARASSED TO HAVE YOU HELP ME.", CALL LIGHT WITHIN REACH, WILL CONTINUE TO MONITOR.
[2017-07-08 09:12] LABS: FREE T4 1.46 ng/dL (0.76-1.46); FREE THYROXINE INDEX 2.6 ug/dL (1.4-4.5); T4(THYROXINE) 6.9 ug/dL (4.7-13.3)
--- NOTE | 2017-07-08 09:22 | NUR ---
PT DENIES PAIN, STATES ABLE TO BREATHE IN SITTING POSITION, CALL LIGHT WITHIN REACH, WILL CONTINUE TO MONITOR.
[2017-07-08 09:33] VITALS: BP 136/70
--- NOTE | 2017-07-08 09:59 | NUR ---
DR. BANGURA AND RESIDENTS MAKING ROUNDS, PLAN OF CARE DISCUSSED.
--- NOTE | 2017-07-08 10:05 | NUR ---
PT DENIES SOB LONG SHE IS SITTING UP, DENIES PAIN, CALL LIGHT WITHIN REACH, WILL CONTINUE TO MONITOR.
--- NOTE | 2017-07-08 11:17 | NUR ---
PT DENIES PAIN, CURRENTLY DENIES SOB, CALL LIGHT WITHIN REACH, WILL CONTINUE TO MONITOR.
--- NOTE | 2017-07-08 12:30 | NUR ---
CLUB LICENSEE PAT AT BEDSIDE ASSISTING WITH ADL'S, CALL LIGHT WITHIN REACH, WILL CONTINUE TO MONITOR.
--- NOTE | 2017-07-08 13:22 | NUR ---
PT MOVED TO BED WITH HOB ELEVATED TO HELP PT BREATHE EASIER, ECHO TO BEGIN SOON, FAMILY AT BEDSIDE, CALL LIGHT WITHIN REACH, WILL CONTINUE TO MONITOR.
--- NOTE | 2017-07-08 14:17 | NUR ---
ECHO FINISHED, PT DENIES SOB, DENIES PAIN, SITTING UP IN BED, FAMILY AT BEDSIDE, CALL LIGHT WITHIN REACH, WILL CONTINUE TO MONITOR.
--- NOTE | 2017-07-08 14:18 | NUR ---
LTD ECHO COMPLETED. PREVIOUS ECHO DONE May.15 RE-EVALUATE TV VEGETATION AND EF. REQUESTED BY DR WATSON
--- NOTE | 2017-07-08 15:30 | NUR ---
PT DENIES SOB, DENIES PAIN, VISITOR AT BEDSIDE, CALL LIGHT WITHIN REACH, WILL CONTINUE TO MONITOR.
--- NOTE | 2017-07-08 16:26 | NUR ---
PT DENIES SOB, DENIES PAIN, BS 129, NO COVERAGE NEEDED, CALL LIGHT WITHIN REACH, WILL CONTINUE TO MONITOR.
--- NOTE | 2017-07-08 17:25 | NUR ---
PT DENIES SOB, DENIES PAIN, ANTIBIOTIC STARTED, PT INQUIRING ABOUT DINNER, CALL LIGHT WITHIN REACH, WILL CONTINUE TO MONITOR.
[2017-07-08 17:29] VITALS: BP 117/65
--- NOTE | 2017-07-08 18:25 | NUR ---
PT DENIES SOB, DENIES PAIN, VISITORS AT BEDSIDE, CALL LIGHT WITHIN REACH, WILL ENDORSE TO NEXT SHIFT.
--- NOTE | 2017-07-08 20:30 | NUR ---
DISCUSSED PLAN OF CARE WITH PATIENT'S DAUGHTER. PER DAUGHTER, PATIENT'S PARTNER JUST AND PATIENT HAS NOT YET SLEEPING FOR A FEW NIGHTS. DOCTOR VONNIE NOTIFIED.
[2017-07-08 21:15] VITALS: BP 125/56
--- NOTE | 2017-07-08 21:28 | NUR ---
BEDTIME MEDS GIVEN. TOLERATED WELL. KEPT HOB AT 45 DEG. O2 2LPM N/C MAINTAINED. IVF TKO NS TO ADALBERTO PICC LINE. CALL LIGHT REINSTRUCTED AND PLACED WITHIN EASY REACH. SIDERAILS UP X2.
--- NOTE | 2017-07-09 01:00 | NUR ---
ASLEEP ON HER LEFT SIDE. NO ANY DISTRESS NOTED.
--- NOTE | 2017-07-09 04:07 | NUR ---
ENDORSED TO THAI BRAVO TO CONTINUE OF CARE.
--- NOTE | 2017-07-09 04:10 | NUR ---
TOOK OVER PT'S CARE.PT ASLEEP AT THIS TIME.WILL CONTINUE TO MONITOR.
[2017-07-09 06:29] VITALS: BP 96/55
--- NOTE | 2017-07-09 06:31 | NUR ---
BS CHECKED @ 132 MG/DL.DUE MEDS ADMINISTERED.DENIES ANY PAIN OR DISCOMFORT.ALL NEEDS MET.WILL CONTINUE TO MONITOR.
[2017-07-09 07:22] LABS: BASOPHIL % 1.6 % (0-2); PLATELET COUNT 191 x10^3mcL (130-400)
[2017-07-09 07:27] LABS: RED CELL DISTRIBUTION WIDTH 18.4 % (11.5-14.5)
[2017-07-09 07:44] LABS: CALCIUM 8.1 mg/dL (8.5-10.1); CARBON DIOXIDE 20.4 mmol/L (21-32); CHLORIDE SERUM 112 mmol/L (98-107); CREATININE SERUM 2.8 mg/dL (0.6-1.0); GLUCOSE SERUM 134 mg/dL (74-106); MAGNESIUM 2.1 mg/dL (1.8-2.4); POTASSIUM SERUM 3.3 mmol/L (3.5-5.1); SODIUM SERUM 145 mmol/L (136-145)
--- NOTE | 2017-07-09 09:21 | NUR ---
PATIENT RESTING IN BED SOB ON EXERTION NOTED, ALL DUE MEDS GIVEN. HELD BP MEDS BP 98/50. LASIX 40MG IVP GIVE SLOWLY WILL MONITOR BP. DTR BRENT AT BEDSIDE AND UPDATE POC. CLEOCIN IVPB GIVEN TO ADALBERTO PICC LINE INTACT AND PATENT.
[2017-07-09 10:11] VITALS: BP 98/50
--- NOTE | 2017-07-09 11:49 | NUR ---
PATIENT SAT UP IN BED HOB ELEVATED, KCL 20MEQ PO GIVEN FOR K 3.3 AND 3 UNITS HUMULIN R SQ FOR BS 166; FAMILY MEMBERS AT BEDSIDE, CONT TO MONITOR.
--- NOTE | 2017-07-09 13:37 | NUR ---
PATIENT RESTING IN BED NO DISTRESS NOTED, SOB WITH EXERTION NOTED. ENCOURAGE PATIENT TO EAT HER LUNCH; SMALL FREQUENT. FAMILY MEMBER ASSIST PATIENT WITH HER MEAL. NEEDS ANTICIPATED.
[2017-07-09 14:04] VITALS: BP 94/57
[2017-07-09 15:00] VITALS: BP 110/63
--- NOTE | 2017-07-09 15:15 | NUR ---
PATIENT BACK TO BED AFTER PT EVAL; SOB NOTED; PLACE ON O2 2LNC SAT 97. BP 110/63, HR 73 CONT TO MONITOR.
--- NOTE | 2017-07-09 16:24 | NUR ---
DR. GORE WAS INFORM CONSENT ORDER NEED BE TO VERTIFIED SITE.
--- NOTE | 2017-07-09 16:30 | NUR ---
PATIENT RESTING IN BED NO DISTRESS NOTED; DR MILNER PRESENT AT BEDSIDE EXAM PATIENT; RN UPDATE DOCTOR PATIENT RECEIVED LASIX THIS MORNING. GIVE 3 UNITS HUMULIN R SQ FOR BS 159; DUE MEDS GIVEN. CLEOCIN IVPB GIVEN TO ADALBERTO PICC LINE X 2 PORTS INTACT AND PATENT. NEEDS ANTICIPATED.
[2017-07-09 17:44] VITALS: BP 106/58
--- NOTE | 2017-07-09 17:46 | NUR ---
PATIENT SAT UP AT 45 DEGREE EATING HER DINNER NO COMPLAINT; INFORM DTR FERMIN THE PROCEDURE THORACENTESIS FOR LEFT LUNG TOMORROW, ? TIME. CONSENT OBTAINED, ALL QUESTIONS ANSWER; NO FURTHER QUESTIONS. NEEDS ANTICIPATED. PATIENT DTR REQUEST FLOOR TO BE MOP; HOUSE KEEP WAS CALL AND PRESENT IN THE ROOM TO MOP FLOOR PER REQUEST. CONT TO MONITOR.
--- NOTE | 2017-07-09 19:25 | NUR ---
RECEIVED PT LAYING IN BED WITH MULTIPLE FAMILY MEMBERS AT BEDSIDE. PT DENIES SOB AT THIS TIME. ON 2L NC, BREATHING EVEN AND UNLABORED. PT AWARE OF PLANNED THORACENTISIS OF LEFT LUNG IN THE AM. PT DENIES PAIN AT THIS TIME. TELE #28, NSR.BILAT PERIPHERAL PULSES ARE PALPABLE, EDEMA NOTED IN BLE. ABD IS ROUND AND SOFT WITH ACTIVE BOWEL SOUNDS. LAST BM YESTERDAY, NORMAL. PT DENIES N/V. GENERALIZED WEAKNESS, AMBULATORY WITH ASSIST. IV FLUIDS INFUSING PER DOCTOR'S ORDERS. PICC LINE IN PLACE, DRY, PATENT, AND INTACT. ROOM IS FREE OF SAFETY HAZARDS. BED IN LOWEST POSITON WITH SIDE RAILS UP X2. CALL LIGHT WITHIN REACH. WILL CONTINUE TO MONITOR
--- NOTE | 2017-07-09 21:04 | NUR ---
PT C/O DIFFICULTY SLEEPING. AMBIEN PRN GIVEN. WILL CONTINUE TO MONITOR
[2017-07-09 21:05] VITALS: BP 105/57
--- NOTE | 2017-07-09 23:23 | NUR ---
PT IS LAYING IN BED WITH EYES CLOSED AT THIS TIME. SHE DOES NOT APPEAR TO BE IN ANY ACUTE DISTRESS AT THIS TIME. CALL LIGHT WITHIN REACH. WILL CONTINUE TO MONITOR
[2017-07-10] VITALS (12 sets, daily range): BP systolic 82–101; BP diastolic 49–66
--- NOTE | 2017-07-10 00:26 | NUR ---
PT SITTING UP ON SIDE OF BED. WHEN ASKED IF SHE FEELS OK, PT STATES, "YES." SHE DOES NOT APPEAR TO BE IN ANY ACUTE DISTRESS AT THIS TIME. PT REMAINS ON 2L NC, BREATHING EVEN AND UNLABORED. DOES NOT APPEAR TO BE IN RESP DISTRESS. CALL LIGHT WITHIN REACH. WILL CONTINUE TO MONITOR
--- NOTE | 2017-07-10 00:28 | NUR ---
PT LAYING IN BED WITH HEAD AT FOOT PART OF THE BED. PT IS ASLEEP AND DOES NOT APPEAR TO BE IN ANY ACUTE DISTRESS AT THIS TIME. CALL LIGHT WITHIN REACH. WILL CONTINUE TO MONITOR
--- NOTE | 2017-07-10 04:09 | NUR ---
PT IS LAYING IN BED WITH EYES CLOSED. PT CONTINUES TO BE SLEEPING WITH HEAD TOWARDS THE FOOT OF THE BED. SHE DOES NOT APPEAR TO BE IN ANY ACUTE DISTRESS AT THIS TIME. CALL LIGHT WITHIN REACH. WILL CONTINUE TO MONITOR
--- NOTE | 2017-07-10 06:48 | NUR ---
NO SIGNIFICANT CHANGES TO REPORT. PT COMPLIED WITH NURSING CARE THROUGHOUT THE SHIFT. PT DOES NOT APPEAR TO BE IN ANY ACUTE DISTRESS AT THIS TIME. ON 2L NC, BREATHING UNLABORED, EVEN, AND SYMMETRICAL. IV FLUIDS REMAIN INFUSING PER DOCTOR'S ORDERS. IV SITE IS DRY, PATENT, AND INTACT. BED IN LOWEST POSITION WITH SIDE RAILS UP X2. CALL LIGHT WITHIN REACH. WILL ENDORSE CARE TO DAY NURSE
[2017-07-10 07:27] LABS: CALCIUM 8.1 mg/dL (8.5-10.1); CARBON DIOXIDE 21.5 mmol/L (21-32); CHLORIDE SERUM 111 mmol/L (98-107); CREATININE SERUM 3.5 mg/dL (0.6-1.0); GLUCOSE SERUM 98 mg/dL (74-106); MAGNESIUM 2.2 mg/dL (1.8-2.4); PHOSPHOROUS 5.4 mg/dL (2.5-4.9); POTASSIUM SERUM 3.6 mmol/L (3.5-5.1); SODIUM SERUM 145 mmol/L (136-145)
--- NOTE | 2017-07-10 07:30 | NUR ---
RECEIVED THE PATIENT ORIENTED TO PERSON, PLACE AND . PATIENT DENIED PAIN OR NAUSEA/VOMITING. PATIENT STATED HAVING EPISODES OF SHORTNESS OF BREATH AND DIFFICULTY BREATHING AT TIMES. PATIENT WAS ON 2L/MIN VIA NASAL CANNULA. IVF NS TKO VIA 1 PORT OF PICC LINE TO LEFT UPPER ARM. TELE # 28 READS SINUS RHYTHMS AT THIS TIME. CALL LIGHT WITHIN REACH. SIDE RAILS UP X3. BED WAS AT LOWEST POSITION, AND ALARM WAS ON.
[2017-07-10 07:59] LABS: BASOPHIL % 0.4 % (0-2); PLATELET COUNT 162 x10^3mcL (130-400)
[2017-07-10 08:19] LABS: RED CELL DISTRIBUTION WIDTH 18.4 % (11.5-14.5)
--- NOTE | 2017-07-10 09:21 | NUR ---
DR. FISH AND THE TEAM WERE MAKING ROUND TO SEE THE PATIENT. DR. FISH WAS MCGEE OF THE PATIENT'S BP 88/50; DOCTOR VERBALIZED HOLDING LASIX 40 MG IVP, COREG 6.25 MG PO AND ENALAPRIL 10 MG PO THIS MORNING.
--- NOTE | 2017-07-10 10:40 | NUR ---
SPOKE WITH LAB, PT/PTT WAS ORDERED THIS AM BUT HASN'T BEEN DRAWN YET. WILL DRAW NICOLE.
--- NOTE | 2017-07-10 12:04 | NUR ---
PLANNING FOR THORACENTESIS TODAY, OK TO PROCEED PER DR PATHAK. NOTIFIED PATIENT'S NURSE ARMANDO.
--- NOTE | 2017-07-10 13:17 | NUR ---
RAD NURSE WAS AT BEDSIDE PREPARING THORACENTESIS PROCEDURE FOR THE PATIENT.
--- NOTE | 2017-07-10 14:00 | NUR ---
THE THORACENTESIS COMPLETED. DR. GORE-RESIDENT WAS AWARE OF THE PATIENT'S LOW BP 82/49. WILL RECHECKED VS ORDERED S/P THORACENTESIS.
[2017-07-10 15:06] LABS: TOTAL PROTEIN, SERUM 6.9 g/dL (6.4-8.2)
--- NOTE | 2017-07-10 15:18 | NUR ---
THE PATIENT STATED FEELING LITTLE BETTER COMPARED WITH THE TIME RIGHT AFTER THORACENTESIS DONE. STILL MONITOR AND CHECK VS ORDERED.
--- NOTE | 2017-07-10 15:19 | NUR ---
PHYSICAL THERAPY DAILY NOTES CO-SIGN All documentation done by the [employer] for 07/10/17 has been reviewed. I agree with the documentation. I CONCUR W/MANAGER CRISIS NOTE; CONT PER TX PLAN Reviewed/Co-Signed by: Sandhya Barney V PT Documentation Done by: LAURA VU PTA
--- NOTE | 2017-07-10 15:23 | NUR ---
Initial Nutrition Assessment Dx: CHF exacerbation PMHx: CHF, htn, DM, [place] 2016, HLD, endocarditis PSHx: Appendectomy Labs: (07/10) B, BUN:48H, Cr:3.5H, Ca:8.1L, Phos:5.4H, WBC:11.9H, (07/08) T bili:1.84H, St:74H, HDL:19L, BNP:3686, Lactic acid:2.1 Meds: Colace, Ferrous sulfate, Glucotrol, Humulin, Lactinex, Lasix, NS IV, Zofran Diet:NPO due to thoracentesis. Note: Dr to advance diet to pureed, CCHO, cardiac fluid restriction for dinner. PO Intake:N/A due to current NPO status Ht: 60in, 5ft Wt: 173#, 78.613kg BMI:33.8kg/m2 (obesity class ) IBW:100#, 45kg %IBW: 173% UBW:170# per pt Wt hs: (05/2017) 154#, 70kg weight increase possibly due to fluid retention from CHF Age:71 y/o female Food Allergies:NKFA Skin:intact Solitario:16 Edema:+3 to BLE GI: active bowel sounds Last BM :07/08 Nursing Trigger: poor PO intake>3days Pt admitted with CHF exacervation with BNP:3686 and EF:15-20% Per progress note 07/10, patient appears to be doing worse this morning. Her blood pressure has dropped to 88/50 with a MAP in the 40s per Nursing. Lasix and coreg held 2/2 to blood pressure. IR has been contacted again for possible Thoracentesis today pending repeat PT PTT. Patient has been satting 91% on 2L nasal cannula. Per Dr. Willoughby consult: recommend new echo and restrict fluids to 1800ml/day. Per bed huddle this morning, pt will get a thoracentesis today and will have a consult with Dr. Banerjee. During visit, observed pt laying in bed with family at bedside. Pt's nephew helped translate during RD interview. Pt reports UBW:170# but last admit wt was 154#. Pt with no c/o N/V/D/C. Pt reports to not being hungry at this time but requested pureed foods due to having dentures . RD offered mechanical soft-chopped but pt was insistent on pureed due to it being easier for her to swallow. Spoke to Dr. Figueroa about recommendations and doctor said he would input diet recommendations. Problem with: N: No V: No D: No C:No Problems with: Chewing: Yes, pt with dentures. Swallowing: No Current appetite: poor Recent wt change:+19# wt gain within 2 months %wt change:-12.3& Vitamin/Supplement use:Folic acid Special diet at home:Low sodium Physical activity: No, due to pt with fluid retention Education: RD emphasized low sodium, fluid resticted diet to avoid retention of fluid. Pt's family receptive and verbalized understanding. Estimated Nutritional Needs Based on ideal body weight 45kg Energy:7628-4985 kcal/d (25-30kcal/kg for maintenance) Protein: 45g/d (1.0g/kg for geriatric maintenance) Fluid: 900-1125 ml/d (20-25ml/kg for CHF) or per doctor Nutrition Diagnosis 1. Altered nutrition labs related to CHF as evidenced by elevated BNP:3686 Intervention 1. Recommend advance diet as tolerated to pureed low sodium, CCHO with 1-1.5L fluid restriction due to pt with CHF. 2. Recommend Phoslo due to pt with elevated phosphorus level Monitor/Evaluate Goal: PO intake>75% est needs Monitor: PO intake, Labs, GI function F/U in 3-5 days as moderate risk:07/13-
--- NOTE | 2017-07-10 15:26 | NUR ---
1. Recommend advance diet as tolerated to pureed low sodium, CCHO with 1-1.5L fluid restriction due to pt with CHF. 2. Recommend Phoslo due to pt with elevated phosphorus level
[2017-07-10 16:55] LABS: SOURCE FLUID THORACENTESIS
[2017-07-10 16:56] LABS: APPEARANCE FLUID CLOUDY; COLOR FLUID YELLOW; RBC FLUID 2970 /cumm; WBC FLUID 620 /cumm
[2017-07-10 17:27] LABS: LYMPHOCYTE FLUID 54 %; MONOCYTE FLUID 3 %
--- NOTE | 2017-07-10 18:18 | NUR ---
THE PATIENT WAS ON AND OFF SLEEPING AFTER THORACENTESIS PROCEDURE. THE PATIENT STATED FEELING BETTER BUT DID NOT WANT TO DRINK OR EAT ANYTHING. PATIENT WAS ENCOURAGED TO HAVE FOOD AND SOME DRINK BUT REFUSED. ALSO, THE PATIENT DID NOT WANT TO TAKE FERROUS SULFATE 325 MG PO AND LACTINEX 1 TAB PO AT 1700. DR. GORE-RESIDENT WAS INFORMED THAT THE PATIENT DID NOT WANT TO TAKE THESE TWO MEDS.
--- NOTE | 2017-07-10 19:10 | NUR ---
SPOKE WITH KARMEN FROM [facility], SAID TO EXPECT TRANSFER OF PT OUT TO HOSPICE CARE TOMORROW 07/11/17.
--- NOTE | 2017-07-10 19:28 | NUR ---
DR. SELLERS WAS NOTIFIED THAT THE PATIENT DID NOT VOID DURING DAY SHIFT TODAY; THE PATIENT WAS NPO BEFORE THORACENTESIS WITH IVF NS AT 10 ML/HR. AND THORACENTESIS OUTPUT WAS 1000ML. THE PATIENT WAS ON HOSPICE EVAL.
--- NOTE | 2017-07-10 19:45 | NUR ---
RECEIVED PT LAYING IN BED WITH EYES CLOSED AND SLEEP WITH [place] FAMILY MEMBERS AT BEDSIDE. PT DOES NOT APPEAR BE IN ANY ACUTE DISTRESS AT THIS TIME. PT REMAINS ON 2L NC, BREATHING EVEN AND UNLABORED. CRAKCLES NOTED IN BILAT BASES. DOES NOT APPEAR TO BE IN ANY ACUTE RESP DISTRESS AT THIS TIME. IV FLUIDS INFUSING PER DOCTOR'S ORDERS. PICC LINE DRESSING IS CLEAN, DRY, AND INTACT. BOTH PORTS FLUSHED AND PATENT. 3+ EDEMA NOTED IN BLE, SCD IN PLACE. TELE #28, NSR, RATE 76. ROOM IS FREE OF SAFETY HAZARDS. BED IN LOWEST POSITION WITH SIDE RAILS UP X2. CALL LIGHT WITHIN REACH. WILL CONTINUE TO MONITOR
--- NOTE | 2017-07-10 22:01 | NUR ---
PT IS LAYING IN BED, SON IN LAW AT BEDSIDE. SHE IS CONVERSING WITH SON IN LAW. SHE DOES NOT APPEAR TO BE IN ANY ACUTE DISTRESS. WHEN ASKED HOW SHE FEELS, SHE STATED, "GOOD". PT DENIES PAIN AT THIS TIME. CALL LIGHT WITHIN REACH. WILL CONTINUE TO MONITOR
--- NOTE | 2017-07-10 23:33 | NUR ---
PT REQUESTED TO BE TURNED ONTO RIGHT SIDE. PT TURNED TO RIGHT SIDE WITHOUT INCIDENT. STATES SHE IN COMFORTABLE. SON IN LAW AT BEDSIDE. CALL LIGHT WITHIN REACH. WILL CONTINUE TO MONITOR
--- NOTE | 2017-07-11 01:10 | NUR ---
PT IS LAYING IN BED WITH HOB ELEVATED 80 DEGREES. SHE STATED SHE WAS HAVING MILD DYSPNEA BUT FEELS BETTER UPON ELEVATING HOB. 2L NC IN PLACE. BREATHING EVEN AND UNLABORED. SHE DOES NOT APPEAR TO BE IN ANY ACUTE DISTRESS AT THIS TIME. SON IN LAW AT BEDSIDE. CALL LIGHT WITHIN REACH. WILL CONTINUE TO MONITOR
--- NOTE | 2017-07-11 01:23 | NUR ---
PT IS LAYING IN BED WITH EYES CLOSED AND ASLEEP AT THIS TIME. SHE DOES NOT APPEAR TO BE IN ANY ACUTE DISTRESS. IV FLUIDS REMAIN INFUSING PER DOCTOR'S ORDERS. BED IN LOWEST POSITION. CALL LIGHT WITHIN REACH. WILL CONTINUE TO MONITOR
--- NOTE | 2017-07-11 04:33 | NUR ---
PT REQUESTED TO BE TURNED FACING WINDOW. WITH ASSITANCE FROM LEAD SOFTWARE TEST ENGINEER, ABLE TO TURN PT. SHE C/O OF MILD DYSPNEA WHILE TURNING BUT SUBSIDED AFTER A FEW MINUTES REST. SHE IS ON 2L NC. NO ACUTE DISTRESS NOTED. SON IN LAW AT BEDSIDE. CALL LIGHT WITHIN REACH. WILL CONTINUE TO MONITOR
--- NOTE | 2017-07-11 04:50 | NUR ---
MORNING VITAL SIGNS BP 102/55
[2017-07-11 04:56] VITALS: BP 102/55
--- NOTE | 2017-07-11 06:12 | NUR ---
PER AYALA ZUÑIGA, PT URINATED INTO BEDPAN AND A SMEAR OF STOOL.
--- NOTE | 2017-07-11 06:13 | NUR ---
NO SIGNIFICANT CHANGES TO REPORT. PT COMPLIED WITH NURSING CARE THROUGHOUT THE SHIFT. PT STATES THAT WHEN SHE IS LAID FLAT WHEN PUT ON BED ORELLANA OR WENT TURNED, SHE FEELS DYSPNEA THAT LATER SUBSIDES ONCE HOB IS ELEVATED. PT DENIED PAIN DURING THE SHIFT. SHE IS CALM AND PLEASANT. SON IN LAW WAS AT BEDSIDE DURING THE SHIFT AND WAS HELPFUL IN TRANSLATING SINCE PT IS [place] SPEAKING ONLY. SHE IS IN NO ACUTE DISTRESS AT THIS PRESENT TIME. IV FLUIDS INFUSING PER DOCTOR'S ORDERS. PICC LINE IN PLACE, FLUSHED, PATENT, AND DRESSING CLEAN, DRY, AND INTACT. BED IN LOWEST POSITION WITH HOB ELEVATED 45 DEGREES. CALL LIGHT WITHIN REACH. WILL ENDORSE CARE TO DAY NURSE
[2017-07-11 06:59] LABS: BASOPHIL % 0.7 % (0-2); PLATELET COUNT 167 x10^3mcL (130-400)
[2017-07-11 07:10] LABS: CALCIUM 7.8 mg/dL (8.5-10.1); CHLORIDE SERUM 111 mmol/L (98-107); GLUCOSE SERUM 67 mg/dL (74-106); MAGNESIUM 2.1 mg/dL (1.8-2.4); PHOSPHOROUS 6.3 mg/dL (2.5-4.9); SODIUM SERUM 146 mmol/L (136-145)
[2017-07-11 07:13] LABS: CREATININE SERUM 4.1 mg/dL (0.6-1.0)
--- NOTE | 2017-07-11 07:50 | NUR ---
RECEIVED PT IN BED, ASSESSED AND DOCUMENTED. DENIES PAIN THIS TIME. PT SLEEPING THIS TIME. NO SOB NOTED. AROUSABLE WITH VERBAL STIMULI. SAFTEY PRECAUTIONS ON. WILL MONITOR.
--- NOTE | 2017-07-11 08:00 | NUR ---
INFORMED ABOUT BUN=55 AND CREAT=4.1 AND ALSO INFORMED MARITAO TROUGH 14.4. NO NEW ORDER RECEIVED THIS TIME.
[2017-07-11 09:31] VITALS: BP 103/67
[2017-07-11] MEDS ORDERED: LEVOFLOXACIN500 M1 PO (10:37)
[2017-07-11] MEDS ORDERED: CLINDAMYCIN HC300 MG PO (10:38)
[2017-07-11] MEDS ORDERED: GLU5 PO (11:14)
[2017-07-11 11:22] VITALS: BP 103/67
[2017-07-11 11:30] VITALS: BP 107/62
--- NOTE | 2017-07-11 11:38 | NUR ---
SPOKE WITH MICHAEL AT [facility] . CONFIRMED HE RECEIVED LIST OF DC MEDS. PER MICHAEL, TRANPORT ARRANGED WITH CHARLEE MCGINNIS WITH O2, TOURS HOSTESS TIME AT 1400. DAUGHTER AWARE, CURRENTLY AT HOME WAITING FOR EQUIPMENT TO BE DELIVERED. PRIMARY NURSE ADARSH WILKINSON.
--- NOTE | 2017-07-11 12:45 | NUR ---
AND RESIDENTS DID ROUNDS. EXPLAINED THE PLAN OF CARE.
--- NOTE | 2017-07-11 13:40 | NUR ---
REMOVED PICC LINE FROM THE [facility]. DRESSING APPLIED. NO BLEEDING SEEN.
[2017-07-11 13:54] VITALS: BP 99/51
--- NOTE | 2017-07-11 14:30 | NUR ---
[facility] CAME TO SIDE PULLER PT. PT IS STABLE. V/S STABLE. TELE REMOVED AND RETURNED. DISCHARGE INSTRUCTIONS GIVEN AND PT SIGNED. PB SIGNED AND SENT WITH PT. IV AND TELE REMOVED. PT DENIES PAIN. PT DISCHARGED TO HOME VIA [facility]. PT'S DAUGHTER WAS AT BEDSIDE.
== END 2017-07-11 14:51 | disposition hospice, home (50) | DRG 194 ==
LOC: ED 01:07 → DU 03:31
PROVIDERS: Emergency Medicine; Family Medicine; ADMIT Family Medicine Sports Medicine
PROC: 0W9B3ZZ Drainage of Left Pleural Cavity, Percutaneous Approach (ICD-10-PCS; principal; 2017-07-09)
DX: I13.0 Hypertensive heart and chronic kidney disease with heart failure and stage 1 through stage 4 chronic kidney disease, or unspecified chronic kidney disease (principal); N17.0 Acute kidney failure with tubular necrosis; J69.0 Pneumonitis due to inhalation of food and vomit; I33.0 Acute and subacute infective endocarditis; E87.0 Hyperosmolality and hypernatremia; J90 Pleural effusion, not elsewhere classified; D68.69 Other thrombophilia; E11.22 Type 2 diabetes mellitus with diabetic chronic kidney disease; I50.43 Acute on chronic combined systolic (congestive) and diastolic (congestive) heart failure; E11.65 Type 2 diabetes mellitus with hyperglycemia; I25.2 Old myocardial infarction; Z79.82 Long term (current) use of aspirin; Z68.26 Body mass index [BMI] 26.0-26.9, adult; Z79.84 Long term (current) use of oral hypoglycemic drugs; E78.5 Hyperlipidemia, unspecified; N18.9 Chronic kidney disease, unspecified
CPT/HCPCS: 32555; 82947; 82962; 83880; 84439; 97110-GP; 97116-GP; 97530-GP; C1729; J1940; J1956; J3490; J7030; J7050; Q0092